=== PATIENT | male | born 1970 | race Caucasian/White ===

== ENCOUNTER 2020-05-27 04:32 | Observation (INO) ==
[2020-05-27 04:52] VITALS: BMI 29.2
[2020-05-27] MEDS ORDERED: LEVSIN/MAALOX/LIDOC VISC PO PRN (04:57)
[2020-05-27] MEDS ORDERED: NS 1000 ML 1,000 ML IV ONE (05:04)
[2020-05-27] MEDS ORDERED: MORPHINE SULFATE INJ 2 MG INJ IVP ONE (05:04)
--- NOTE | 2020-05-27 05:05 | DR.ABDMALE ---
HPI Time seen Time Seen by Provider: 05/27/20 04:57 PCP Primary Care Physician: MARLON GODOY HPI comment HPI Comment: A 50 y/o male presenting with diffuse abdominal pain since dinner last night. He states the pain is worsening and characterizes this as sharp in nature. He has tried some OTC agents with no relief. Complaint Chief Complaint:: PT STATES THAT STARTING LAST NIGHT HE HAS BEEN HAVING DIFFUSE ABDOMINAL PAIN THAT IS SHARP AND STABBING AND FEELS LIKE GAS. HE HAS TAKEN GI COCKTAIL AND ROLAID WITHOUT RELIEF. Self Treatment fo Chief Complaint: GI COCKTAIL AND ROLAID WITHOUT RELIEF Reviewed Nurses Notes Review: Yes Mode of arrival Mode of Arrival: Ambulatory Timing Onset of Chief Complaint: 05/26/20 Came on: Gradually Duration How lon Duration: Hours Severity Severity: Moderate Quality Quality: Sharp and Stabbing Context Onset: Gradually Modifying factors Worsening Factors: Nothing Improving Factors: Nothing Associated signs and symptoms Associated Signs and Symptoms: None PMH PMH Past Medical History: No Past Surgical History: Yes Surgical History: Ortho Surgery Family History History of Family Medical Conditions: No Social History Does patient currently use any type of tobacco product: No Have you used tobacco products in the last 12 months: No Type of Tobacco Use: None Does any household member use tobacco: No Alcohol Use: None Lives With: Spouse Lives Where: Home Infectious screening In the last 2 months have you had wt loss of >10#?: NO Have you had fever, night sweats or hemotysis?: No Have you traveled outside the country in the last 6 months?: No Isolation: Standard ROS Review of Systems Constitutional: No Symptoms Reported Eyes: No Symptoms Reported ENTM: No Symptoms Reported Respiratoy: No Symptoms Reported Cardiovascular: No Symptoms Reported Gastrointestinal/Abdominal: Abdominal Pain Genitourinary: No Symptoms Reported Neurological: No Symptoms Reported Musculoskeletal: No Symptoms Reported Integumentary: No Symptoms Reported Hematologic/Lymphatic: No Symptoms Reported Endocrine: No Symptoms Reported Psychiatric: No Symptoms Reported PE Vital Signs Vital Signs: Temp Pulse Resp BP Pulse Ox 05/27/20 05:55 20 05/27/20 05:15 22 05/27/20 04:45 98.6 F 63 24 144/75 100 General Limitations: No Limitations General Appearance: Alert and In No Apparent Distress Head Head Exam: Normal Inspection, Atraumatic and Normocephalic Eyes Eye exam: Normal Appearance and EOMI ENT ENT Exam: Normal Exam, Normal Oropharynx, Normal External Ear Exam and Mucous Membranes Moist Neck Neck Exam: Normal Inspection, Full ROM and Trachea Midline Chest Chest Inspection: Normal Inspection and Symmetric Chest Wall Rise Respiratory Respiratory Exam: Normal Lung Sounds Bilat Cardiovascular Cardiovascular Exam: Regular Rate, Normal Rhythm, Normal Heart Sounds, +S1 and +S2 Abdominal Exam Abdominal Exam: Normal Inspection, Normal Bowel Sounds, Soft and Tenderness Abdominal Tenderness: Epigastrium Rectal Rectal Exam: Deferred Back Back Exam: Normal Inspection and Full ROM Extremeties Extremities Exam: Normal Inspection and Full ROM Exam: Male: Deferred Neurologic Neurological Exam: Alert and Oriented X3 Psychiatric Psychiatric Exam: Normal Affect and Normal Mood Skin Skin Exam: Dry and Normal Color MDM Differential Diagnosis Differential Diagnosis: Cholcystitis, Cholelethiasis and Pancreatitis COURSE Reevaluation 1st: Improved Education/Counseling Education/Counseling: Patient, Family, Education and Counseling Educated On: Treatment, Diagnosis, Prognosis and Needs for Follow Up ROR Labs Reviewed Result Diagrams: 05/27/20 05:05 05/27/20 05:05 Laboratory: WBC 11.0 X10^3/uL (3.6-10.0) H 05/27/20 05:05 RBC 5.81 X10^6/uL (4.7-6.0) 05/27/20 05:05 Hgb 16.8 g/dL (13.5-18.0) 05/27/20 05:05 Hct 50.9 % (42.0-54.0) 05/27/20 05:05 MCV 87.6 fL (80.0-100.0) 05/27/20 05:05 MCH 28.9 pg (27.0-34.0) 05/27/20 05:05 MCHC 33.0 g/dL (33.0-35.0) 05/27/20 05:05 RDW 13.5 % (11.6-16.5) 05/27/20 05:05 Plt Count 163 X10^3/uL (150.0-450.0) 05/27/20 05:05 MPV 9.2 fL (7.4-11.0) 05/27/20 05:05 Neut % (Auto) 77.6 % (42.0-75.0) H 05/27/20 05:05 Lymph % (Auto) 14.7 % (21.0-51.0) L 05/27/20 05:05 [place] % (Auto) 6.9 % (0.0-13.0) 05/27/20 05:05 Eos % (Auto) 0.5 % (0.9-2.9) L 05/27/20 05:05 Baso % (Auto) 0.3 % (0.2-1.0) 05/27/20 05:05 Neut # (Auto) 8.5 x10^3/uL (2.2-4.8) H 05/27/20 05:05 Lymph # (Auto) 1.6 X10^3/uL (1.3-2.9) 05/27/20 05:05 [place] # (Auto) 0.8 x10^3/uL (0.3-0.8) 05/27/20 05:05 Eos # (Auto) 0.1 x10^3/uL (0.0-0.2) 05/27/20 05:05 Baso # (Auto) 0.0 X10^3/uL (0.0-0.1) 05/27/20 05:05 Absolute Nucleated RBC 0.0 /100WBC 05/27/20 05:05 Sodium 141 mmol/L (136-145) 05/27/20 05:05 Corrected Sodium 141 mmol/L (136-145) 05/27/20 05:05 Potassium 4.5 mmol/L (3.5-5.1) 05/27/20 05:05 Chloride 103 mmol/L (98-107) 05/27/20 05:05 Carbon Dioxide 29.2 mmol/L (21-32) 05/27/20 05:05 BUN 23 mg/dL (7-18) H 05/27/20 05:05 Creatinine 1.29 mg/dL (0.70-1.30) 05/27/20 05:05 Est GFR (MDRD) Af Amer > 60 (>60) 05/27/20 05:05 Est GFR (MDRD) Non-Af > 60 (>60) 05/27/20 05:05 Glucose 118 mg/dL (65-99) H 05/27/20 05:05 Calcium 8.6 mg/dL (8.5-10.1) 05/27/20 05:05 Corrected Calcium TNP 05/27/20 05:05 Total Bilirubin 1.40 mg/dL (0.2-1.0) H 05/27/20 05:05 AST 23 Units/L (15-37) 05/27/20 05:05 ALT 39 Units/L (12-78) 05/27/20 05:05 Alkaline Phosphatase 112 Units/L (46-116) 05/27/20 05:05 Total Protein 6.9 g/dL (6.4-8.2) 05/27/20 05:05 Albumin 3.8 g/dL (3.4-5.0) 05/27/20 05:05 Globulin 3.1 g/dL (2.5-4.5) 05/27/20 05:05 Albumin/Globulin Ratio 1.2 Ratio (1.1-2.1) 05/27/20 05:05 Amylase 43 Units/L (25-115) 05/27/20 05:05 Lipase 161 Units/L (73-393) 05/27/20 05:05 Opioid Opioid Risk Tool Total: 0 Total Score Risk Category: Low Risk Copyright: [facility] predicting aberrant behaviors Diagnosis Discharge Problem: Cholelithiasis Qualifiers: Cholelithiasis location: gallbladder Cholecystitis presence: without cholecystitis Biliary obstruction: without biliary obstruction Qualified Code(s): K80.20 - Calculus of gallbladder without cholecystitis without obstruction Abdominal pain Qualifiers: Abdominal location: epigastric Qualified Code(s): R10.13 - Epigastric pain Instructions Instructions: Cholelithiasis, [id number] Forms: Precautions for COVID19 Patient Portal Social Distancing ADDITIONAL NOTES Additional Notes Additional Notes: Name: NICOLE CABELLO#: [id number]: [id number] : 1970ex: MLocation: ER Order Number(s): [id number](s):ABDOMEN/PELVIS WITH CON Ordering Physician: ZOIE LEPE Primary Care: Cindy Godoy Service Date: 05/27/20 Service Time: 0457 HISTORY Diffuse abdominal pain STUDY CT abdomen pelvis with contrast Technique: Axial post-contrast images with coronal and sagittal reformats. Dose reduction procedures were used with mA/kv adjusted for body size. COMPARISON None FINDINGS The lung bases are clear. The liver, spleen, adrenal glands, and pancreas are within normal limits. Cholelithiasis is present. There is no evidence for cholecystitis. The kidneys are unobstructed. Bilateral small nonobstructing renal calculi are present. No ureteral calculi are identified. The appendix is not identified with absolute certainty. There are no secondary signs of appendicitis present. The abdominal aorta is normal. No enlarged intraperitoneal or retroperitoneal lymphadenopathy is identified. There are no findings suggestive of enteritis, colitis, or diverticulitis. No pelvic masses, pelvic fluid, or pelvic lymphadenopathy is identified. No lytic or blastic skeletal lesions of significance are identified. There is a small fat containing right inguinal hernia present. No lytic or blastic skeletal lesions of significance are identified. IMPRESSION Cholelithiasis without evidence for cholecystitis Bilateral nonobstructing nephrolithiasis Small fat containing right inguinal hernia Electronically signed by: BAILEY HINES (May 27, 2020 07:33:11) Report Electronically signed: 05/27/20 0734 CC: Zoie Lepe
[2020-05-27] MEDS ORDERED: NS 1000 ML 1,000 ML ONE (05:11)
[2020-05-27] MEDS ORDERED: MORPHINE SULFATE INJ 2 MG INJ ONE (05:11)
[2020-05-27 05:17] LABS: BASOPHILS % (AUTO) 0.3 % (0.2-1.0); EOSINOPHILS # (AUTO) 0.1 x10^3/uL (0.0-0.2); EOSINOPHILS % (AUTO) 0.5 % (0.9-2.9); HEMATOCRIT 50.9 % (42.0-54.0); HEMOGLOBIN 16.8 g/dL (13.5-18.0); LYMPHOCYTES # (AUTO) 1.6 X10^3/uL (1.3-2.9); LYMPHOCYTES % (AUTO) 14.7 % (21.0-51.0); MEAN CORPUSCULAR HEMOGLOBIN 28.9 pg (27.0-34.0); MEAN CORPUSCULAR VOLUME 87.6 fL (80.0-100.0); MEAN PLATELET VOLUME 9.2 fL (7.4-11.0); MONOCYTES # (AUTO) 0.8 x10^3/uL (0.3-0.8); MONOCYTES % (AUTO) 6.9 % (0.0-13.0); NEUTROPHILS # (AUTO) 8.5 x10^3/uL (2.2-4.8); NEUTROPHILS % (AUTO) 77.6 % (42.0-75.0); PLATELET COUNT 163 X10^3/uL (150.0-450.0); RED BLOOD COUNT 5.81 X10^6/uL (4.7-6.0); RED CELL DISTRIBUTION WIDTH 13.5 % (11.6-16.5)
[2020-05-27 05:26] LABS: ALANINE AMINOTRANSFERASE 39 Units/L (12-78); ALBUMIN 3.8 g/dL (3.4-5.0); ALKALINE PHOSPHATASE 112 Units/L (46-116); AMYLASE 43 Units/L (25-115); ASPARTATE AMINO TRANSFERASE 23 Units/L (15-37); BLOOD UREA NITROGEN 23 mg/dL (7-18); CALCIUM 8.6 mg/dL (8.5-10.1); CARBON DIOXIDE 29.2 mmol/L (21-32); CHLORIDE 103 mmol/L (98-107); COR NA(FOR HYPERGLY) 141 mmol/L (136-145); CREATININE 1.29 mg/dL (0.70-1.30); LIPASE 161 Units/L (73-393); SODIUM 141 mmol/L (136-145); TOTAL PROTEIN 6.9 g/dL (6.4-8.2); eGFR NON BLACK RACES > 60 (>60)
[2020-05-27] MEDS ORDERED: NS 100 ML IV 100 ML IV ONE (05:45)
[2020-05-27] MEDS ORDERED: LEVSIN/MAALOX/LIDOC VISC ONE (05:53)
--- NOTE | 2020-05-27 07:34 | CT ---
HISTORYDiffuse abdominal painSTUDYCT abdomen pelvis with contrastTechnique: Axial post-contrast images with coronal and sagittal reformats. Dose reduction procedures were used with mA/kv adjusted for body size.COMPARISONNoneFINDINGSThe lung bases are clear. The liver, spleen, adrenal glands, and pancreas are within normal limits. Cholelithiasis is present. There is no evidence for cholecystitis. The kidneys are unobstructed. Bilateral small nonobstructing renal calculi are present. No ureteral calculi are identified. The appendix is not identified with absolute certainty. There are no secondary signs of appendicitis present. The abdominal aorta is normal. No enlarged intraperitoneal or retroperitoneal lymphadenopathy is identified. There are no findings suggestive of enteritis, colitis, or diverticulitis. No pelvic masses, pelvic fluid, or pelvic lymphadenopathy is identified. No lytic or blastic skeletal lesions of significance are identified. There is a small fat containing right inguinal hernia present. No lytic or blastic skeletal lesions of significance are identified.IMPRESSIONCholelithiasis without evidence for cholecystitisBilateral nonobstructing nephrolithiasisSmall fat containing right inguinal herniaElectronically signed by: BAILEY HINES (May 27, 2020 07:33:11)
[2020-05-27] MEDS ORDERED: DILAUDID INJ IVP ONE (07:56)
[2020-05-27] MEDS ORDERED: DILAUDID INJ ONE (08:01)
--- NOTE | 2020-05-27 08:05 | DR.ABDMALE ---
HPI Time seen Time Seen by Provider: 05/27/20 04:57 PCP Primary Care Physician: MARLON HOLLIDAY Complaint Chief Complaint:: PT STATES THAT STARTING LAST NIGHT HE HAS BEEN HAVING DIFFUSE ABDOMINAL PAIN THAT IS SHARP AND STABBING AND FEELS LIKE GAS. HE HAS TAKEN GI COCKTAIL AND ROLAID WITHOUT RELIEF. Self Treatment fo Chief Complaint: GI COCKTAIL AND ROLAID WITHOUT RELIEF COVID-19 Coronavirus risk:travel/contact w/high risk person: No Has patient experienced Coronavirus symptoms: No Mode of arrival Mode of Arrival: Ambulatory Timing Onset of Chief Complaint: 05/26/20 Came on: Gradually PMH PMH Past Medical History: No Past Surgical History: Yes Surgical History: Ortho Surgery Family History History of Family Medical Conditions: No Social History Does patient currently use any type of tobacco product: No Have you used tobacco products in the last 12 months: No Type of Tobacco Use: None Does any household member use tobacco: No Alcohol Use: None Lives With: Spouse Lives Where: Home Travel Risk Coronavirus risk:travel/contact w/high risk person: No Has patient experienced Coronavirus symptoms: No Infectious screening In the last 2 months have you had wt loss of >10#?: NO Have you had fever, night sweats or hemotysis?: No Have you traveled outside the country in the last 6 months?: No Isolation: Standard PE Vital Signs Vital Signs: Temp Pulse Resp BP Pulse Ox 05/27/20 05:55 20 05/27/20 05:15 22 05/27/20 04:45 98.6 F 63 24 144/75 100 ROR Labs Reviewed Result Diagrams: 05/27/20 05:05 05/27/20 05:05 Laboratory: WBC 11.0 X10^3/uL (3.6-10.0) H 05/27/20 05:05 RBC 5.81 X10^6/uL (4.7-6.0) 05/27/20 05:05 Hgb 16.8 g/dL (13.5-18.0) 05/27/20 05:05 Hct 50.9 % (42.0-54.0) 05/27/20 05:05 MCV 87.6 fL (80.0-100.0) 05/27/20 05:05 MCH 28.9 pg (27.0-34.0) 05/27/20 05:05 MCHC 33.0 g/dL (33.0-35.0) 05/27/20 05:05 RDW 13.5 % (11.6-16.5) 05/27/20 05:05 Plt Count 163 X10^3/uL (150.0-450.0) 05/27/20 05:05 MPV 9.2 fL (7.4-11.0) 05/27/20 05:05 Neut % (Auto) 77.6 % (42.0-75.0) H 05/27/20 05:05 Lymph % (Auto) 14.7 % (21.0-51.0) L 05/27/20 05:05 [place] % (Auto) 6.9 % (0.0-13.0) 05/27/20 05:05 Eos % (Auto) 0.5 % (0.9-2.9) L 05/27/20 05:05 Baso % (Auto) 0.3 % (0.2-1.0) 05/27/20 05:05 Neut # (Auto) 8.5 x10^3/uL (2.2-4.8) H 05/27/20 05:05 Lymph # (Auto) 1.6 X10^3/uL (1.3-2.9) 05/27/20 05:05 [place] # (Auto) 0.8 x10^3/uL (0.3-0.8) 05/27/20 05:05 Eos # (Auto) 0.1 x10^3/uL (0.0-0.2) 05/27/20 05:05 Baso # (Auto) 0.0 X10^3/uL (0.0-0.1) 05/27/20 05:05 Absolute Nucleated RBC 0.0 /100WBC 05/27/20 05:05 Sodium 141 mmol/L (136-145) 05/27/20 05:05 Corrected Sodium 141 mmol/L (136-145) 05/27/20 05:05 Potassium 4.5 mmol/L (3.5-5.1) 05/27/20 05:05 Chloride 103 mmol/L (98-107) 05/27/20 05:05 Carbon Dioxide 29.2 mmol/L (21-32) 05/27/20 05:05 BUN 23 mg/dL (7-18) H 05/27/20 05:05 Creatinine 1.29 mg/dL (0.70-1.30) 05/27/20 05:05 Est GFR (MDRD) Af Amer > 60 (>60) 05/27/20 05:05 Est GFR (MDRD) Non-Af > 60 (>60) 05/27/20 05:05 Glucose 118 mg/dL (65-99) H 05/27/20 05:05 Calcium 8.6 mg/dL (8.5-10.1) 05/27/20 05:05 Corrected Calcium TNP 05/27/20 05:05 Total Bilirubin 1.40 mg/dL (0.2-1.0) H 05/27/20 05:05 AST 23 Units/L (15-37) 05/27/20 05:05 ALT 39 Units/L (12-78) 05/27/20 05:05 Alkaline Phosphatase 112 Units/L (46-116) 05/27/20 05:05 Total Protein 6.9 g/dL (6.4-8.2) 05/27/20 05:05 Albumin 3.8 g/dL (3.4-5.0) 05/27/20 05:05 Globulin 3.1 g/dL (2.5-4.5) 05/27/20 05:05 Albumin/Globulin Ratio 1.2 Ratio (1.1-2.1) 05/27/20 05:05 Amylase 43 Units/L (25-115) 05/27/20 05:05 Lipase 161 Units/L (73-393) 05/27/20 05:05 Opioid Opioid Risk Tool Age (Taurus box if 16-45): No Total: 0 Total Score Risk Category: Low Risk Copyright: [facility] predicting aberrant behaviors Diagnosis Discharge Problem: Cholelithiasis Qualifiers: Cholelithiasis location: gallbladder Cholecystitis presence: without cholecystitis Biliary obstruction: without biliary obstruction Qualified Code(s): K80.20 - Calculus of gallbladder without cholecystitis without obstruction Abdominal pain Qualifiers: Abdominal location: epigastric Qualified Code(s): R10.13 - Epigastric pain Instructions Instructions: Cholelithiasis, [id number] Forms: Precautions for COVID19 Patient Portal Social Distancing
--- NOTE | 2020-05-27 10:02 | US ---
[id number] male with right upper quadrant painSTUDYLimited abdominal ultrasoundCOMPARISONCT of the abdomen/pelvis also performed todayFINDINGSLiver is normal in size and echotexture with no focal intrahepatic abnormality seen. Portal vein is patent with normal hepatopetal flow.A combination of sludge and small calculi are seen in the gallbladder. However no gallbladder wall thickening or localized tenderness is present. Common bile duct measures 3 millimeters in diameter.Right kidney is 13.2 centimeters in length. No hydronephrosis, echogenic calculi, or renal mass is seen on the right.Pancreas is normal appearing.IMPRESSION1. Cholelithiasis and gallbladder sludge are identified.2. Remainder of the exam is unremarkableElectronically signed by: MIKKI CARDOSO (May 27, 2020 10:01:18)
--- NOTE | 2020-05-27 10:24 | DR.ABDMALE ---
HPI Time seen Time Seen by Provider: 05/27/20 04:57 PCP Primary Care Physician: MARLON HOLLIDAY HPI comment HPI Comment: PATIENT IS 50YR OLD MALE IN ER WITH DIFFUSED ABDOMINAL SABBING PAIN, 10/10 RADIATING TO THE BACK THAT STARTED LAST NIGHT. HAVE HAD SIMILAR PAIN PREVIOUSLY AND IS ON SEVERAL MEDICATION FOR ACID INDIGESTION. HE TOOK ROAID AND GI COCKTAIL WITHOUT RELIEF. NO FEVER OR DYAURIA. Complaint Chief Complaint Doctors Comments: ABDOMINAL PAIN SINCE LAST NIGHT. Chief Complaint:: PT STATES THAT STARTING LAST NIGHT HE HAS BEEN HAVING DIFFUSE ABDOMINAL PAIN THAT IS SHARP AND STABBING AND FEELS LIKE GAS. HE HAS TAKEN GI COCKTAIL AND ROLAID WITHOUT RELIEF. Self Treatment fo Chief Complaint: GI COCKTAIL AND ROLAID WITHOUT RELIEF COVID-19 Coronavirus risk:travel/contact w/high risk person: No Has patient experienced Coronavirus symptoms: No Reviewed Nurses Notes Review: Yes Mode of arrival Mode of Arrival: Ambulatory Timing Onset of Chief Complaint: 05/26/20 Came on: Gradually Duration Duration: Constant Duration: Hours Location Location: Diffuse Severity Severity: Severe Quality Quality: Stabbing Context Onset: Suddenly Modifying factors Improving Factors: Lying Still Associated signs and symptoms Associated Signs and Symptoms: Nausea and Vomiting PMH PMH Past Medical History: No Past Surgical History: Yes Surgical History: Ortho Surgery Family History History of Family Medical Conditions: No Social History Does patient currently use any type of tobacco product: No Have you used tobacco products in the last 12 months: No Type of Tobacco Use: None Does any household member use tobacco: No Alcohol Use: None Lives With: Spouse Lives Where: Home Travel Risk Coronavirus risk:travel/contact w/high risk person: No Has patient experienced Coronavirus symptoms: No Infectious screening In the last 2 months have you had wt loss of >10#?: NO Have you had fever, night sweats or hemotysis?: No Have you traveled outside the country in the last 6 months?: No Isolation: Standard ROS Review of Systems Constitutional: See HPI, Weakness and Fatigue; negative Fever Eyes: No Symptoms Reported and See HPI ENTM: No Symptoms Reported and See HPI; negative Nose Discharge and Nose Congestion Respiratoy: No Symptoms Reported and See HPI; negative Moist Cough, Short of Breath and Wheezing Cardiovascular: No Symptoms Reported and See HPI; negative Chest Pain, Edema and Palpitations Gastrointestinal/Abdominal: See HPI, Abdominal Pain, Nausea and Vomiting; negat kit Diarrhea Genitourinary: No Symptoms Reported and See HPI; negative Dysuria, Frequency and Hematuria Neurological: No Symptoms Reported and See HPI; negative Headache, Weakness and Dizziness Musculoskeletal: No Symptoms Reported and See HPI; negative Back Pain and Muscle Pain Integumentary: No Symptoms Reported and See HPI; negative Change in Color, Rash and Juandice Hematologic/Lymphatic: No Symptoms Reported and See HPI; negative Easy Bruising and Swollen Glands Endocrine: No Symptoms Reported and See HPI; negative Increased Thirst and Increased Urine Psychiatric: No Symptoms Reported and See HPI All Other Systems: Reviewed and Negative PE Vital Signs Vital Signs: Temp Pulse Pulse Resp BP BP Pulse Ox 05/27/20 08:09 68 18 141/84 98 05/27/20 05:55 20 05/27/20 05:15 22 05/27/20 04:45 98.6 F 63 24 144/75 100 General Limitations: No Limitations General Appearance: Alert and In No Apparent Distress Head Head Exam: Normal Inspection Eyes Eye exam: Normal Appearance and PERRL; negative Scleral Icterus and Conjunctival Injection ENT ENT Exam: Normal Exam, Normal Oropharynx, Normal External Ear Exam and TM's Normal Bilaterally Neck Neck Exam: Normal Inspection and Trachea Midline; negative Tenderness and Lymphadenopathy Chest Chest Inspection: Normal Inspection and Symmetric Chest Wall Rise; negative Tenderness Respiratory Respiratory Exam: Normal Lung Sounds Bilat; negative Accessory Muscle Use, Chest Wall Tenderness and Respiratory Distress Respiratory Exam: Bilateral: Clear to Auscultation Cardiovascular Cardiovascular Exam: Regular Rate, Normal Rhythm and Normal Heart Sounds; negative Systolic Murmur and Diastolic Murmur Abdominal Exam Abdominal Exam: Normal Inspection and Normal Bowel Sounds; negative Tenderness Rectal Rectal Exam: Deferred Back Back Exam: Normal Inspection; negative (R) CVA Tenderness and (L) CVA Tenderness Extremeties Extremities Exam: Normal Inspection and Normal Capillary Refill; negative Tenderness, Edema and Calf Tenderness Exam: Male: Deferred Neurologic Neurological Exam: Alert, Oriented X3 and CN II-XII Intact; negative Motor Sensory Deficit Psychiatric Psychiatric Exam: Normal Affect and Normal Mood Skin Skin Exam: Warm, Dry, Intact and Normal Color MDM Additional Information Obtained From Additional information provided by: Old Records and Family Differential Diagnosis Differential Diagnosis: Bowel Obstruction, Cholcystitis, Cholelethiasis, Diverticular disease, Gastritus/PUD, Inflammatory BD, Pancreatitis, Urinary t ract infection and Urolithiasis COURSE Treatment Treatment: SEE ORDERS. Consultation Consultation Comments: SURGERY CONSULT, DR SOLORIO IN ER EVALUATING PATIENT. PATIENT TO BE ADMITTED BY PCP. DR. ELIZABETH WIADMIT PATIENT. Education/Counseling Education/Counseling: Patient Educated On: Diagnosis ROR Labs Reviewed Laboratory Results Reviewed?: Yes Result Diagrams: 05/27/20 05:05 05/27/20 05:05 Laboratory: WBC 11.0 X10^3/uL (3.6-10.0) H 05/27/20 05:05 RBC 5.81 X10^6/uL (4.7-6.0) 05/27/20 05:05 Hgb 16.8 g/dL (13.5-18.0) 05/27/20 05:05 Hct 50.9 % (42.0-54.0) 05/27/20 05:05 MCV 87.6 fL (80.0-100.0) 05/27/20 05:05 MCH 28.9 pg (27.0-34.0) 05/27/20 05:05 MCHC 33.0 g/dL (33.0-35.0) 05/27/20 05:05 RDW 13.5 % (11.6-16.5) 05/27/20 05:05 Plt Count 163 X10^3/uL (150.0-450.0) 05/27/20 05:05 MPV 9.2 fL (7.4-11.0) 05/27/20 05:05 Neut % (Auto) 77.6 % (42.0-75.0) H 05/27/20 05:05 Lymph % (Auto) 14.7 % (21.0-51.0) L 05/27/20 05:05 [place] % (Auto) 6.9 % (0.0-13.0) 05/27/20 05:05 Eos % (Auto) 0.5 % (0.9-2.9) L 05/27/20 05:05 Baso % (Auto) 0.3 % (0.2-1.0) 05/27/20 05:05 Neut # (Auto) 8.5 x10^3/uL (2.2-4.8) H 05/27/20 05:05 Lymph # (Auto) 1.6 X10^3/uL (1.3-2.9) 05/27/20 05:05 [place] # (Auto) 0.8 x10^3/uL (0.3-0.8) 05/27/20 05:05 Eos # (Auto) 0.1 x10^3/uL (0.0-0.2) 05/27/20 05:05 Baso # (Auto) 0.0 X10^3/uL (0.0-0.1) 05/27/20 05:05 Absolute Nucleated RBC 0.0 /100WBC 05/27/20 05:05 Sodium 141 mmol/L (136-145) 05/27/20 05:05 Corrected Sodium 141 mmol/L (136-145) 05/27/20 05:05 Potassium 4.5 mmol/L (3.5-5.1) 05/27/20 05:05 Chloride 103 mmol/L (98-107) 05/27/20 05:05 Carbon Dioxide 29.2 mmol/L (21-32) 05/27/20 05:05 BUN 23 mg/dL (7-18) H 05/27/20 05:05 Creatinine 1.29 mg/dL (0.70-1.30) 05/27/20 05:05 Est GFR (MDRD) Af Amer > 60 (>60) 05/27/20 05:05 Est GFR (MDRD) Non-Af > 60 (>60) 05/27/20 05:05 Glucose 118 mg/dL (65-99) H 05/27/20 05:05 Calcium 8.6 mg/dL (8.5-10.1) 05/27/20 05:05 Corrected Calcium TNP 05/27/20 05:05 Total Bilirubin 1.40 mg/dL (0.2-1.0) H 05/27/20 05:05 AST 23 Units/L (15-37) 05/27/20 05:05 ALT 39 Units/L (12-78) 05/27/20 05:05 Alkaline Phosphatase 112 Units/L (46-116) 05/27/20 05:05 Total Protein 6.9 g/dL (6.4-8.2) 05/27/20 05:05 Albumin 3.8 g/dL (3.4-5.0) 05/27/20 05:05 Globulin 3.1 g/dL (2.5-4.5) 05/27/20 05:05 Albumin/Globulin Ratio 1.2 Ratio (1.1-2.1) 05/27/20 05:05 Amylase 43 Units/L (25-115) 05/27/20 05:05 Lipase 161 Units/L (73-393) 05/27/20 05:05 Opioid Opioid Risk Tool Age ([place] box if 16-45): No Total: 0 Total Score Risk Category: Low Risk Copyright: [facility] predicting aberrant behaviors Diagnosis Discharge Problem: Cholelithiasis Qualifiers: Cholelithiasis location: gallbladder Cholecystitis presence: without cholecystitis Biliary obstruction: without biliary obstruction Qualified Code(s): K80.20 - Calculus of gallbladder without cholecystitis without obstruction Abdominal pain Qualifiers: Abdominal location: epigastric Qualified Code(s): R10.13 - Epigastric pain Instructions Instructions: Cholelithiasis, [id number] Forms: Precautions for COVID19 Patient Portal Social Distancing
[2020-05-27] MEDS ORDERED: ZOFRAN INJ 4 MG VIAL IVP PRN (11:12)
[2020-05-27] MEDS ORDERED: DILAUDID INJ IVP PRN ×2 (11:12→12:56)
[2020-05-27] MEDS ORDERED: NS 1000 ML 1,000 ML IV SCH (11:12)
[2020-05-27] MEDS ORDERED: PEPCID 20 MG IV PREMIX* 20 MG/50 ML BAG IV PRN (11:12)
[2020-05-27] MEDS: D5 1/2 NS 1000 ML 1,000 ML IV SCH ×2 (13:43→21:08)
[2020-05-27 13:45] LABS: CKMB % 1.5 % (<4); CREATINE KINASE 113 Units/L (39-308); CREATINE KINASE MB 1.7 ng/mL (0-4.0); TROPONIN I < 0.02 ng/mL (0-1.5)
--- NOTE | 2020-05-27 13:53 | RAD ---
HISTORYRUQ PAIN, PRE OP GBSTUDYCHEST, 1 [id number]/01/2021FINDINGSThe lungs are clear. No pneumothorax or significant effusion.Heart size is normal.Bones are unremarkable.IMPRESSION1. No significant abnormalityElectronically signed by: Sacha Clay (May 27, 2020 13:52:22)
[2020-05-27] MEDS ORDERED: TYLENOL 325 MG TAB PO PRN (17:16)
[2020-05-28 05:05] LABS: BASOPHILS % (AUTO) 0.2 % (0.2-1.0); EOSINOPHILS # (AUTO) 0.1 x10^3/uL (0.0-0.2); EOSINOPHILS % (AUTO) 0.6 % (0.9-2.9); HEMATOCRIT 46.3 % (42.0-54.0); HEMOGLOBIN 15.5 g/dL (13.5-18.0); LYMPHOCYTES # (AUTO) 1.4 X10^3/uL (1.3-2.9); LYMPHOCYTES % (AUTO) 9.1 % (21.0-51.0); MEAN CORPUSCULAR HEMOGLOBIN 29.1 pg (27.0-34.0); MEAN CORPUSCULAR HGB CONC 33.4 g/dL (33.0-35.0); MEAN CORPUSCULAR VOLUME 87.3 fL (80.0-100.0); MEAN PLATELET VOLUME 9.6 fL (7.4-11.0); MONOCYTES # (AUTO) 1.8 x10^3/uL (0.3-0.8); MONOCYTES % (AUTO) 11.7 % (0.0-13.0); NEUTROPHILS % (AUTO) 78.4 % (42.0-75.0); PLATELET COUNT 145 X10^3/uL (150.0-450.0); RED BLOOD COUNT 5.31 X10^6/uL (4.7-6.0); RED CELL DISTRIBUTION WIDTH 13.7 % (11.6-16.5); WHITE BLOOD COUNT 15.3 X10^3/uL (3.6-10.0)
[2020-05-28] MEDS: D5 1/2 NS 1000 ML 1,000 ML IV SCH ×3 (05:07→21:00)
[2020-05-28 05:18] LABS: ALANINE AMINOTRANSFERASE 28 Units/L (12-78); ALBUMIN 3.2 g/dL (3.4-5.0); ALKALINE PHOSPHATASE 85 Units/L (46-116); AMYLASE 28 Units/L (25-115); ASPARTATE AMINO TRANSFERASE 17 Units/L (15-37); BLOOD UREA NITROGEN 16 mg/dL (7-18); CALCIUM 8.1 mg/dL (8.5-10.1); CARBON DIOXIDE 28.5 mmol/L (21-32); CHLORIDE 102 mmol/L (98-107); COR CA(FOR HYPOALB) 8.7 mg/dL (8.5-10.1); COR NA(FOR HYPERGLY) 138 mmol/L (136-145); CREATININE 1.12 mg/dL (0.70-1.30); LIPASE 76 Units/L (73-393); SODIUM 138 mmol/L (136-145); TOTAL PROTEIN 6.3 g/dL (6.4-8.2); eGFR NON BLACK RACES > 60 (>60)
[2020-05-28] MEDS ORDERED: BACTROBAN TOPICAL OINT ONE (07:00)
[2020-05-28] MEDS ORDERED: BRIDION ONE (08:00)
[2020-05-28] MEDS ORDERED: FENTANYL INJ 100 mcg ONE (08:01)
[2020-05-28] MEDS ORDERED: OFIRMEV IV 1000 MG VIAL 1,000 MG/100 ML VIAL IV ONE (08:01)
[2020-05-28] MEDS ORDERED: ZEMURON 50 MG VIAL ONE ×2 (08:02→08:54)
[2020-05-28] MEDS ORDERED: DILAUDID INJ ONE (08:18)
[2020-05-28] MEDS ORDERED: PEPCID 20 MG IV PREMIX* 20 MG/50 ML BAG IV ONE (08:18)
[2020-05-28] MEDS ORDERED: KETALAR ONE (08:19)
[2020-05-28] MEDS ORDERED: LR 1000 ML IV 1,000 ML IV ONE ×2 (08:22→10:05)
[2020-05-28] MEDS ORDERED: ANCEF 1 GRAM IV PREMIX* 2 G/100 ML BAG IV ONE (08:22)
--- NOTE | 2020-05-28 08:41 | DR.H&P ---
H&P - History & Physical for Day of: H&P Date: 05/27/20 - Chief Complaint Chief Complaint: abdominal pain, n/v - History of Present Illness History of Present Illness: PT IS 50 WM ER ADMISSION WITH CO ABDOMINAL PAIN WITH N/V SUDDEN ONSET. PT REPORT HE HAS HAD INTERMITTEN NAUSEA, WORSENING INDIGESTION, GAS, BLOATING. PT HAS PMH OF HTN AND GERD. PT DENIES ANY HX OF CAD OR DM. ON ER EVALUATION PT FOUND TO HAVE ACUTE CHOLECYSTITIS. PT ADMITTED FOR PAIN CONTROL, SURGICAL CONSULTATION. - Past Medical History Past Medical History: GERD, Hypertension - Past Surgical History Surgical History: Joint Replacement - Family History Family Medical History: Diabetes Mellitus, Cancer, Hypertension - Social History Does patient currently use any type of tobacco product: No Have you used tobacco products in the last 12 months: No Type of Tobacco Use: None Does any household member use tobacco: No Alcohol Use: None Drug Use: None - Medications Home Medications: No Known Drug Allergies Allergy (Verified 05/27/20 16:37) CONTINUE taking the following medications dexlansoprazole [Dexilant] 60 mg PO DAILY 05/27/20 [History] famotidine 40 mg PO BID 05/27/20 [History] levocetirizine 5 mg PO DAILY 05/27/20 [History] meloxicam 15 mg PO DAILY 05/27/20 [History] dk-foyq-vaspq-lycopene-ginkgo [One Daily For Men 50+ Advanced] 1 tab PO DAILY 05/27/20 [History] potassium citrate [Urocit-K 15] 15 meq PO HS 05/27/20 [History] rosuvastatin 10 mg PO HS 05/27/20 [History] testosterone cypionate 200 mg IM WEEKLY 05/27/20 [History] New Prescriptions hydrocodone-acetaminophen 1 tab PO TID PRN #30 tab MDD 6 05/27/20 [Rx] - Review of Systems Constitutional: No Symptoms Reported Eyes: No Symptoms Reported ENT: No Symptoms Reported Respiratory: No Symptoms Reported Cardiovascular: No Symptoms Reported Gastrointestinal: Nausea, Vomiting, Abdominal Pain Genitourinary: No Symptoms Reported Musculoskeletal: No Symptoms Reported Skin: No Symptoms Reported Neurological: No Symptoms Reported - Physical Exam Vital Signs: Temperature 99.1 F Pulse Rate [Left Radial] 92 Pulse Rate 63 Respiratory Rate 20 Blood Pressure [Left Arm] 125/81 Blood Pressure 144/75 O2 Sat by Pulse Oximetry 95 Oriented: Normal Eyes: Normal Ear: Normal Nose: Normal Throat: Normal Respiratory: Clear Throughout Cardiovascular: Normal : Normal Auscultation: Bowel Sounds: Normal Palpation: Normal Tenderness: RUQ, Epigastric Skin: Decreased Turgur Musculoskeletal: Normal Psychiatric: Normal Speech Pattern: Clear, Appropriate - Assessment/Plan (1) Abdominal pain, acute, epigastric Status: Acute Plan: ADMIT, NPO. PPI, CXR ON ADMISSION. EKG, CARDIAC PROFILE, BP CONTROL. GENTLE IV HYDRATION (2) Cholelithiasis Qualifiers: Cholelithiasis location: gallbladder Cholecystitis presence: without cholecystitis Biliary obstruction: without biliary obstruction Qualified Code(s): K80.20 - Calculus of gallbladder without cholecystitis without obstruction Status: Acute (3) GERD (gastroesophageal reflux disease) Status: Acute - Allergies Allergies/Adverse Reactions: Allergies Allergy/AdvReac Type Severity Reaction Status Date / Time No Known Drug Allergies Allergy Verified 05/27/20 16:37
[2020-05-28] MEDS ORDERED: DECADRON INJ ONE (08:54)
[2020-05-28] MEDS ORDERED: VERSED ONE (08:54)
[2020-05-28] MEDS ORDERED: ZOFRAN INJ 4 MG VIAL ONE (08:54)
[2020-05-28] MEDS ORDERED: ROBINUL ONE (08:54)
[2020-05-28] MEDS ORDERED: ULTANE GAS IN ONE (08:54)
[2020-05-28] MEDS ORDERED: XYLOCAINE 2 % (PLAIN) ONE (08:54)
[2020-05-28] MEDS ORDERED: TORADOL 30 MG VIAL ONE (08:54)
[2020-05-28] MEDS ORDERED: LACRI-LUBE S.O.P. ONE (08:54)
[2020-05-28] MEDS ORDERED: DIPRIVAN VIAL ONE (08:54)
[2020-05-28] MEDS ORDERED: REGLAN INJ 10 MG VIAL IVP PRN (10:46)
[2020-05-28] MEDS ORDERED: ZOFRAN INJ 4 MG VIAL IVP PRN (10:46)
[2020-05-28] MEDS ORDERED: BENADRYL INJ 50 MG VIAL IVP PRN (10:46)
[2020-05-28] MEDS ORDERED: PHENERGAN INJ 25 MG IM PRN (10:46)
[2020-05-28] MEDS ORDERED: DILAUDID INJ IVP PRN (10:46)
[2020-05-28] MEDS: ZOSYN VIAL 3.375 GRAMS 3.375 G in NS 100 ML IV + SPIKE MINIBAG* 100 ML IV SCH ×2 (11:35→18:34)
[2020-05-28] MEDS: PROTONIX INJ 40 MG VIAL IVP SCH (13:28)
[2020-05-28] MEDS: NORCO 5/325 MG TAB PO PRN (14:00)
[2020-05-28] MEDS: FIORICET TAB PO PRN ×2 (15:41→23:48)
[2020-05-28] MEDS ORDERED: FIORICET TAB PO ONE (15:41)
[2020-05-29] MEDS: ZOSYN VIAL 3.375 GRAMS 3.375 G in NS 100 ML IV + SPIKE MINIBAG* 100 ML IV SCH ×2 (03:13→13:30)
[2020-05-29] MEDS: D5 1/2 NS 1000 ML 1,000 ML IV SCH ×2 (04:50→13:30)
[2020-05-29 05:32] LABS: BASOPHILS % (AUTO) 0.1 % (0.2-1.0); EOSINOPHILS % (AUTO) 0.1 % (0.9-2.9); HEMATOCRIT 44.4 % (42.0-54.0); HEMOGLOBIN 14.9 g/dL (13.5-18.0); LYMPHOCYTES # (AUTO) 1.2 X10^3/uL (1.3-2.9); LYMPHOCYTES % (AUTO) 7.5 % (21.0-51.0); MEAN CORPUSCULAR HEMOGLOBIN 29.3 pg (27.0-34.0); MEAN CORPUSCULAR HGB CONC 33.6 g/dL (33.0-35.0); MEAN CORPUSCULAR VOLUME 87.3 fL (80.0-100.0); MEAN PLATELET VOLUME 9.2 fL (7.4-11.0); MONOCYTES # (AUTO) 1.2 x10^3/uL (0.3-0.8); MONOCYTES % (AUTO) 7.9 % (0.0-13.0); NEUTROPHILS % (AUTO) 84.4 % (42.0-75.0); PLATELET COUNT 148 X10^3/uL (150.0-450.0); RED BLOOD COUNT 5.09 X10^6/uL (4.7-6.0); RED CELL DISTRIBUTION WIDTH 13.8 % (11.6-16.5); WHITE BLOOD COUNT 15.4 X10^3/uL (3.6-10.0)
[2020-05-29 05:41] LABS: ALANINE AMINOTRANSFERASE 34 Units/L (12-78); ALBUMIN 2.9 g/dL (3.4-5.0); ALKALINE PHOSPHATASE 78 Units/L (46-116); ASPARTATE AMINO TRANSFERASE 21 Units/L (15-37); BLOOD UREA NITROGEN 14 mg/dL (7-18); CALCIUM 8.3 mg/dL (8.5-10.1); CARBON DIOXIDE 26.8 mmol/L (21-32); CHLORIDE 108 mmol/L (98-107); COR CA(FOR HYPOALB) 9.2 mg/dL (8.5-10.1); COR NA(FOR HYPERGLY) 142 mmol/L (136-145); CREATININE 1.13 mg/dL (0.70-1.30); SODIUM 141 mmol/L (136-145); TOTAL PROTEIN 6.2 g/dL (6.4-8.2); eGFR NON BLACK RACES > 60 (>60)
[2020-05-29] MEDS: PROTONIX INJ 40 MG VIAL IVP SCH (09:12)
[2020-05-29] MEDS: FIORICET TAB PO PRN (12:49)
[2020-05-29] MEDS: NORCO 5/325 MG TAB PO PRN (12:50)
[2020-05-29 13:30] VITALS: BP 152/79
== END 2020-05-29 13:20 | disposition home or self-care (01) ==
LOC: ER 04:32 → MED/SURG 04:32
PROVIDERS: ADMIT Internal Medicine; ATTEND Internal Medicine
DX: K82.A1 Gangrene of gallbladder in cholecystitis; K40.90 Unilateral inguinal hernia, without obstruction or gangrene, not specified as recurrent; K66.0 Peritoneal adhesions (postprocedural) (postinfection); K80.00 Calculus of gallbladder with acute cholecystitis without obstruction; I10 Essential (primary) hypertension; E78.2 Mixed hyperlipidemia; R10.13 Epigastric pain; Z20.822 Contact with and (suspected) exposure to COVID-19; K21.9 Gastro-esophageal reflux disease without esophagitis